=== PATIENT | male | born 1990 | race African-American/Black ===

== ENCOUNTER 2023-05-12 12:37 | Observation (INO) | payer OTHER ==
[2023-05-12] MEDS ORDERED: SODIUM CHLORIDE 1,000 ML IV SCH (14:00)
[2023-05-12 14:49] LABS: BASO % 0.9 % (0-2.0); EOS % 1.4 % (0-4.5); HEMATOCRIT 47.6 % (35.4-49); HEMOGLOBIN 16.2 GM/dL (11.7-16.9); LYMPH % 27.2 % (8-40); MCH 30.9 pg (25.7-33.7); MCHC 34.1 g/dl (32.0-35.9); MEAN CELL VOLUME 90.5 fl (80-96); MONO % 7.9 % (3.8-10.2); NEUT % 62.6 % (42.8-82.8); PLATELET COUNT 265 10^3/uL (134-434); RBC 5.26 M/mm3 (4.00-5.60); RDW 13.5 % (11.9-15.9)
[2023-05-12 14:56] LABS: INR 1.1 (0.83-1.09); PROTHROMBIN TIME (PATIENT) 12.7 SEC (9.7-13.0)
[2023-05-12 14:59] LABS: ACTIVATED PTT 33.8 SECONDS (25.2-36.5)
[2023-05-12 15:10] LABS: URINE APPEARANCE Clear; URINE BILIRUBIN Negative (NEGATIVE); URINE COLOR Yellow; URINE GLUCOSE (UA) Negative (NEGATIVE); URINE KETONE Negative (NEGATIVE); URINE LEUK ESTERASE Negative (NEGATIVE); URINE NITRITE Negative (NEGATIVE); URINE PROTEIN Negative (NEGATIVE); URINE UROBILINOGEN 0.2 mg/dL (0.2-1.0)
[2023-05-12 15:38] LABS: CHLORIDE 106 mmol/L (98-107); POTASSIUM 4.2 mmol/L (3.5-5.1); SODIUM 142 mmol/L (136-145)
[2023-05-12 15:40] LABS: ALBUMIN 4.3 g/dl (3.4-5.0); ANION GAP 8 MMOL/L (8-16); CALCIUM 9.7 mg/dL (8.5-10.1); CO2 27 mmol/L (21-32)
[2023-05-12 15:42] LABS: BLOOD UREA NITROGEN 6.6 mg/dL (7-18); GLUCOSE,RANDOM 97 mg/dL (74-106)
[2023-05-12 15:44] LABS: SGOT/AST 20 U/L (15-37); SGPT/ALT 52 U/L (13-61)
[2023-05-12 15:45] LABS: CHOLESTEROL 207 mg/dL (50-200); TOT PROT 8.4 g/dl (6.4-8.2)
[2023-05-12 15:46] LABS: LDL CHOLESTEROL (ONLY SJRH) 140 mg/dL (5-100)
[2023-05-12 15:47] LABS: ALK PHOS 107 U/L (45-117)
[2023-05-12 15:48] LABS: HDL CHOLESTEROL 42 mg/dL (40-60)
[2023-05-12] MEDS ORDERED: ACETAMINOPHEN 325 MG TABLET (FP) PO PRN (17:33)
[2023-05-12 17:45] LABS: COCAINE, UR NEGATIVE (NEGATIVE); METHADONE, UR NEGATIVE (NEGATIVE); OPIATES, URI NEGATIVE (NEGATIVE); PHENCYCLIDINE,URINE NEGATIVE (NEGATIVE); URINE AMPHETAMINES NEGATIVE (NEGATIVE); URINE BARBITURATES NEGATIVE (NEGATIVE); URINE BENZODIAZEPINES NEGATIVE (NEGATIVE)
[2023-05-13 00:30] VITALS: BMI 31.1
[2023-05-13 08:28] LABS: POTASSIUM 4.1 mmol/L (3.5-5.1)
[2023-05-13 08:28] LABS: BASO % 0.7 % (0-2.0); HEMATOCRIT 46.6 % (35.4-49); HEMOGLOBIN 16.5 GM/dL (11.7-16.9); LYMPH % 26.5 % (8-40); MCH 31.7 pg (25.7-33.7); MCHC 35.4 g/dl (32.0-35.9); MEAN CELL VOLUME 89.7 fl (80-96); MEAN PLT VOLUME 9.3 fl (7.5-11.1); MONO % 7.9 % (3.8-10.2); NEUT % 62.9 % (42.8-82.8); PLATELET COUNT 250 10^3/uL (134-434); RBC 5.19 M/mm3 (4.00-5.60); RDW 13.2 % (11.9-15.9); WHITE BLOOD COUNT 11.2 K/mm3 (4.0-10.0)
[2023-05-13 08:32] LABS: ALBUMIN 4.3 g/dl (3.4-5.0); BLOOD UREA NITROGEN 9.6 mg/dL (7-18); CALCIUM 9.5 mg/dL (8.5-10.1)
[2023-05-13 08:36] LABS: CREATININE 0.9 mg/dL (0.55-1.3); PHOSPHOROUS 3.4 mg/dL (2.5-4.9)
[2023-05-13 08:37] LABS: BILIRUBIN,TOTAL 0.8 mg/dL (0.2-1); TOT PROT 8.3 g/dl (6.4-8.2)
[2023-05-13 11:24] VITALS: BP 153/97; PULSE 66; RESP 24; TEMP 98.5
== END 2023-05-13 12:42 | disposition home or self-care (01) ==
LOC: JER 12:37 → UNDOADMOB 15:42 → INTOOBSV 15:42 → JERBED 15:42 → J4W 23:39
PROVIDERS: ADMIT Internal Medicine; ATTEND Internal Medicine
PROC: 3E0337Z Introduction of Electrolytic and Water Balance Substance into Peripheral Vein, Percutaneous Approach (ICD-10-PCS; principal; 2023-05-12)
DX: R27.0 Ataxia, unspecified (principal); R73.03 Prediabetes; E87.8 Other disorders of electrolyte and fluid balance, not elsewhere classified; Z29.8 Encounter for other specified prophylactic measures; R53.1 Weakness; R51.9 Headache, unspecified
CPT/HCPCS: 36415; 70450-TC; 70553-TC; 71045-TC-FY; 80053; 80061; 80307; 81003; 82550; 82553; 82607; 83036; 83735; 84100; 84443; 84484; 85025; 85610; 85651; 85730; 86038; 86140; 86618; 86780; 86850; 86900; 86901; 93005; 93010; 96360; 97116-GP; 97161-GP; 99285-25; A9579; G0378